=== PATIENT | male | born 1965 | race Caucasian/White ===

== ENCOUNTER 2022-02-23 08:18 | Outpatient (CLI) | payer OTHER, SELFPAY ==
[2022-02-23 13:30] LABS: Cholesterol* 155 mg/dL (90-199); HDL Cholesterol* 47 mg/dL (>=40); LDL Cholesterol Calculated 100 mg/dL (<100); Triglycerides* 42 mg/dL (40-149)
[2022-02-23 13:54] LABS: PSA Screen* 0.68 ng/mL (0.10-4.00)
[2022-02-23 15:02] LABS: Vitamin D 25 Hydroxy* 72 ng/mL (30-80)
== END 2022-02-23 08:19 | disposition home or self-care (01) ==
LOC: LKVREF 08:18
PROVIDERS: PCP Family Medicine; Visit Provider Family Medicine
DX: Z00.00 Encounter for general adult medical examination without abnormal findings (principal); Z13.6 Encounter for screening for cardiovascular disorders; Z12.5 Encounter for screening for malignant neoplasm of prostate
CPT/HCPCS: 80061; 82306; 84153

== ENCOUNTER 2023-08-27 08:54 | Outpatient (CLI) | payer OTHER, SELFPAY | END 2023-08-27 08:55 | disposition home or self-care (01) | PROVIDERS: PCP Family Medicine; Visit Provider Family Medicine | DX: Z00.00 Encounter for general adult medical examination without abnormal findings (principal); E78.00 Pure hypercholesterolemia, unspecified; Z87.438 Personal history of other diseases of male genital organs | CPT/HCPCS: 80053; 80061; G0103 ==

== ENCOUNTER 2024-10-12 08:05 | Outpatient (CLI) | payer OTHER, SELFPAY | END 2024-10-12 08:06 | disposition home or self-care (01) | LOC: NFLDREF 10-14 05:56 | PROVIDERS: PCP Family Medicine; Referring Provider Family Medicine; Visit Provider Family Medicine | DX: Z13.228 Encounter for screening for other metabolic disorders (principal); Z13.6 Encounter for screening for cardiovascular disorders; Z12.5 Encounter for screening for malignant neoplasm of prostate | CPT/HCPCS: 80053; 80061; G0103 ==